=== PATIENT | female | born 1970 | race Caucasian/White ===

== ENCOUNTER → 2017-06-22 14:03 | Outpatient (CLI) | payer BC, SELFPAY | PROVIDERS: PCP Family Medicine; Visit Provider Family Medicine | DX: G47.30 Sleep apnea, unspecified (principal); G47.10 Hypersomnia, unspecified | CPT/HCPCS: 95806 ==

== ENCOUNTER → 2017-07-05 14:04 | Outpatient (CLI) | payer BC, SELFPAY ==
--- NOTE | 2017-07-05 14:05 | US_ITS ---
US transvaginal HISTORY: ITS.REASON: abnormal /heavy bleeding ORDERING PHYSICIAN: Mallory Paige MD PATIENT AGE: 46 years FINDINGS: Uterus measures 7 x 4 x 6 cm with a combined endometrial thickness of 4 mm. The uterus is retroverted. There is a 1.2 x 0.8 cm area of decreased echogenicity in the lateral aspect of the uterine body consistent with a fibroid. Right ovary is 3 x 2.3 cm and contains a 1.2 cm cyst. The left ovary is enlarged measuring 4.2 x 4 cm containing a 3.3 x 3.8 cm cyst. No internal echoes. No septa. No cul-de-sac fluid. IMPRESSION: 1. 3.8 x 3.3 cm benign-appearing left ovarian cyst 2. Small uterine fibroid
== END ==
PROVIDERS: Family Provider Family Medicine; PCP Family Medicine; Visit Provider Obstetrics & Gynecology
DX: N92.1 Excessive and frequent menstruation with irregular cycle (principal); N93.8 Other specified abnormal uterine and vaginal bleeding
CPT/HCPCS: 76830

== ENCOUNTER → 2017-12-13 15:47 | Outpatient (CLI) | payer BC, SELFPAY ==
--- NOTE | 2017-12-13 15:48 | MM_ITS ---
MM Dig screening mamm BI w/CAD ORDERING PHYSICIAN : Mallory Paige MD PATIENT AGE: 47 years GENDER: Female COMPARISON: Previous mammogram digital mammogram August 2016 & film screen study [facility] November 2012 INDICATION: ITS.REASON: Routine Screening Mammogram Patient takes control pills. No new complaints. Noncontributory family history. TECHNIQUE: Standard CC and MLO images were obtained. R2 CAD reviewed. Axillary cc &. CC nipple profile both breast FINDINGS: Moderate density breast bilaterally. Moderate residual fibroglandular elements no suspicious dominant mass nor suspicious calcifications in either breast. Prior films are helpful and supportive stable appearance of the breast. No significant new areas of concern L1 compared to the digital mammogram of 2017. RIGHT BREAST:No significant new phase follow-up in one year recommended. LEFT BREAST:No significant new findings. Follow-up left mammogram 1 year IMPRESSION: Moderate density breast. No significant new findings of concern No malignancy evident radiographically. Bilateral follow-up in one year recommended. BI-RADS Category: 2 Benign Finding(s) RECOMMENDED FOLLOW-UP: 1YR 1 YEAR FOLLOW-UP (A letter has been sent to the patient regarding results of the study.)
== END ==
PROVIDERS: Family Provider Family Medicine; PCP Family Medicine; Visit Provider Obstetrics & Gynecology
DX: Z12.31 Encounter for screening mammogram for malignant neoplasm of breast (principal)
CPT/HCPCS: 77067

== ENCOUNTER → 2018-06-25 15:29 | Outpatient (CLI) | payer BC, SELFPAY ==
[2018-06-25 16:33] LABS: Basophils % 0.3 % (0.1-2.0); Eosinophils # 0.1 K/mm3 (0.0-0.4); Eosinophils % 1.2 % (0.1-12.0); Hematocrit 45.2 % (37.0-47.0); Hemoglobin 14.4 g/dL (12.2-16.2); Lymphocytes # 3.2 K/mm3 (0.7-4.5); Lymphocytes % 40.1 % (10-50); Mean Corpuscular HGB Conc 31.9 g/dL (31.8-35.4); Mean Corpuscular Hemoglobin 27.2 pg (27.0-31.2); Monocytes # 0.4 K/mm3 (0.1-1.0); Monocytes % 5.1 % (1.7-9.3); Neutrophils # 4.2 K/mm3 (1.8-7.8); Neutrophils % 53.3 % (37.0-80.0); Platelet Count 326 K/mm3 (142-424); Red Blood Count 5.32 M/mm3 (4.20-5.40); Red Cell Distribution Width 13.1 % (11.5-17.5); White Blood Count 7.9 K/mm3 (4.8-10.8)
[2018-06-25 17:16] LABS: Blood Urea Nitrogen 17 mg/dL (7-18); Creatinine,Serum 0.98 mg/dL (0.55-1.02); Estimated Glomerular Filt Rate 61 ml/min (>60); GFR (African American) 74 ML/MIN (>60)
== END ==
PROVIDERS: Visit Provider Otolaryngology
DX: R59.9 Enlarged lymph nodes, unspecified (principal); R60.9 Edema, unspecified
CPT/HCPCS: 36415; 82565; 84520; 85025

== ENCOUNTER → 2018-07-09 11:45 | Outpatient (CLI) | payer BC, SELFPAY ==
[2018-07-09 12:32] LABS: Basophils % 0.2 % (0.1-2.0); Eosinophils # 0.1 K/mm3 (0.0-0.4); Eosinophils % 0.5 % (0.1-12.0); Hematocrit 48.7 % (37.0-47.0); Hemoglobin 15.9 g/dL (12.2-16.2); Lymphocytes # 1.4 K/mm3 (0.7-4.5); Lymphocytes % 11.3 % (10-50); Mean Corpuscular HGB Conc 32.6 g/dL (31.8-35.4); Mean Corpuscular Hemoglobin 27.7 pg (27.0-31.2); Mean Corpuscular Volume 84.9 fl (81-99); Mean Platelet Volume 6.9 fl (7.4-10.4); Monocytes # 0.5 K/mm3 (0.1-1.0); Neutrophils # 10.3 K/mm3 (1.8-7.8); Platelet Count 343 K/mm3 (142-424); Red Blood Count 5.74 M/mm3 (4.20-5.40); Red Cell Distribution Width 12.9 % (11.5-17.5); White Blood Count 12.2 K/mm3 (4.8-10.8)
[2018-07-09 13:09] LABS: Alanine Aminotransferase 27 U/L (12-78); Albumin Level 3.4 gm/dL (3.4-5.0); Albumin/Globulin Ratio 0.8 (1.1-1.8); Alkaline Phosphatase 108 U/L (46-116); Amylase 51 U/L (25-115); Anion Gap 15.4 mEq/L (5-15); Aspartate Amino Transferase 8 U/L (15-37); Bilirubin,Total 0.4 mg/dL (0.2-1.0); Blood Urea Nitrogen 17 mg/dL (7-18); Calcium 8.6 mg/dL (8.5-10.1); Carbon Dioxide 25 mmol/L (21.0-32.0); Chloride 102 mmol/L (98-107); Creatinine,Serum 0.66 mg/dL (0.55-1.02); Estimated Glomerular Filt Rate 97 ml/min (>60); GFR (African American) 117 ML/MIN (>60); Globulin 4.1 gm/dl (1.3-3.2); Glucose 172 mg/dL (74-106); Lipase 109 u/L (73-393); Potassium 4.4 mmoL/L (3.5-5.1); Sodium 138 mmol/L (136-145); Total Protein,Serum 7.5 gm/dL (6.4-8.2)
== END ==
PROVIDERS: Visit Provider Family Medicine
DX: R10.13 Epigastric pain (principal); R10.12 Left upper quadrant pain
CPT/HCPCS: 36415; 80053; 82150; 83690; 85025

== ENCOUNTER → 2018-07-10 14:06 | Outpatient (CLI) | payer BC, SELFPAY ==
--- NOTE | 2018-07-10 14:07 | CT_ITS ---
CT soft tissue neck wo/w con INDICATION: ITS.REASON: tender area left neck ORDERING PHYSICIAN: Franki Herron MD PATIENT AGE: 47 years COMPARISON: None TECHNIQUE: Axial images are obtained without and with 75 mL's of Optiray 350 contrast. Sagittal and coronal reformatted images are reviewed as well. All CT scans at the facility use one or more dose reduction, viz: automated exposure control, ma/kV adjustment per patient size (including targeted exams where dose is matched to indication, i.e. head), or iterative reconstruction technique. FINDINGS: A BB is placed along the left neck anterior laterally to renny the area of clinical concern there is no evidence of adenopathy, mass, or abscess. The salivary glands have an unremarkable appearance. No sialoliths. There are few scattered small cervical lymph nodes but no enlarged nodes apparent. No aneurysms. Images of the upper chest are unremarkable. No thyroid nodule. There is mild degenerative disc disease at C5-C6. The sternocleidomastoid muscles are somewhat asymmetric with the left side being larger than the right side. The tendon from the sternocleidomastoid to the sternum is also slightly larger. IMPRESSION: 1. No neck mass or nodules or adenopathy apparent. 2. Mild asymmetry in the sternocleidomastoid muscle the left being slightly larger than the right
== END ==
PROVIDERS: PCP Family Medicine; Visit Provider Otolaryngology
DX: R59.9 Enlarged lymph nodes, unspecified (principal); R60.9 Edema, unspecified
CPT/HCPCS: 70492; Q9967

== ENCOUNTER → 2018-07-20 08:31 | Outpatient (CLI) | payer BC, SELFPAY ==
--- NOTE | 2018-07-20 08:41 | FL_ITS ---
FL upper GI w air HISTORY: ITS.REASON: ABD PAIN ORDERING PHYSICIAN: Abimael Lugo MD PATIENT AGE: 47 years Comparison: None FINDINGS: The esophagus, stomach, and duodenum have an unremarkable appearance. There is no evidence of hiatal hernia. No ulcer or mass evident. No mucosal abnormalities apparent. There is normal peristalsis. The duodenal C-loop is nondisplaced. FLUOROSCOPY TIME : 1 minute and 25 seconds. IMPRESSION: Negative upper GI
== END ==
PROVIDERS: PCP Family Medicine; Visit Provider Family Medicine
DX: R10.13 Epigastric pain (principal)
CPT/HCPCS: 74247

== ENCOUNTER → 2018-08-15 15:40 | Outpatient (CLI) | payer BC, SELFPAY ==
[2018-08-15 17:11] LABS: Blood Urea Nitrogen 11 mg/dL (7-18); Creatinine,Serum 0.88 mg/dL (0.55-1.02); Estimated Glomerular Filt Rate 69 ml/min (>60); GFR (African American) 84 ML/MIN (>60)
== END ==
PROVIDERS: Visit Provider Family Medicine
DX: R10.11 Right upper quadrant pain (principal)
CPT/HCPCS: 36415; 82565; 84520

== ENCOUNTER → 2018-08-17 08:53 | Outpatient (CLI) | payer BC, SELFPAY ==
--- NOTE | 2018-08-17 08:59 | CT_ITS ---
CT abdomen pelvis w con CLINICAL INDICATION: Left upper quadrant pain and pressure ITS.REASON: EPIGASTRIC ABDOMINAL PAIN, NEUTROPHILIC LEUOKOCYTOSIS ORDERING PHYSICIAN: Abimael Lugo MD PATIENT AGE: 47 years COMPARISON: None TECHNIQUE: Axial images obtained with sagittal and coronal reformats. All CT scans at the facility use one or more dose reduction, viz: automated exposure control, ma/kV adjustment per patient size (including targeted exams where dose is matched to indication, i.e. head), or iterative reconstruction technique. PROCEDURE: Oral Contrast: Redicat IV Contrast: 75 mL's Optiray 350. FINDINGS: Lower thorax: No acute finding The liver, spleen, pancreas, and kidneys have an unremarkable appearance. There is a small 5 mm left renal cyst. The adrenal glands are slightly enlarged nonspecific. Postcholecystectomy changes. No intestinal obstruction or free air. No evidence of appendicitis or diverticulitis. There is mild thickening of the jejunum without distention. This may be related to enteritis. No pelvic mass abnormal fluid collection or focal inflammatory changes pelvis. There is some mild thickening of the sigmoid colon which could be due to nondistention. There are mild degenerative changes in the lumbar spine. IMPRESSION: 1. Possible enteritis. 2. Other nonacute findings as above 3. The adrenal glands are slightly enlarged. This is nonspecific. Consider 6 month follow-up without and with contrast with adrenal protocol to confirm stability
== END ==
PROVIDERS: PCP Family Medicine; Visit Provider Family Medicine
DX: R10.11 Right upper quadrant pain (principal); R10.13 Epigastric pain
CPT/HCPCS: 74177; Q9967

== ENCOUNTER → 2018-12-20 15:51 | Outpatient (CLI) | payer BC, SELFPAY ==
--- NOTE | 2018-12-20 15:53 | MM_ITS ---
PROCEDURE: MM DIG SCREENING MAMM BI W/CAD CLINICAL INDICATION: SCREENING There is no personal or family history of breast cancer. 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 R2 CAD reviewed. FINDINGS: Prominent diffuse somewhat heterogenic fibroglandular densities are seen in both breasts and the findings of bilateral and symmetrical. There are few benign-appearing microcalcifications in each breast. There is no suspicious lesion and no suspicious microcalcifications. IMPRESSION: Moderate diffuse breast density with no suspicious lesions seen BI-RAD Category: 2 Benign Finding(s) FOLLOW-UP: 1YR 1 Year Follow-up (A letter has been sent to the patient regarding results of the study.) Dictated by: Dr. Jeffery Go MD 12/21/2018 10:[address] Jeffery Go MD in [place] 12/21/2018 10:07
== END ==
PROVIDERS: PCP Family Medicine; Visit Provider Family Medicine
DX: Z12.31 Encounter for screening mammogram for malignant neoplasm of breast (principal)
CPT/HCPCS: 77067

== ENCOUNTER → 2019-12-29 17:28 | Outpatient (CLI) | payer BC, SELFPAY | PROVIDERS: PCP Family Medicine; Visit Provider Nurse Practitioner | DX: Z03.818 Encounter for observation for suspected exposure to other biological agents ruled out (principal) | CPT/HCPCS: U0003 ==

== ENCOUNTER → 2020-01-02 12:50 | Outpatient (CLI) | payer BC, SELFPAY ==
--- NOTE | 2020-01-02 13:01 | MM_ITS ---
PROCEDURE: MM DIG SCREENING MAMM BI W/CAD Digital Breast Tomosynthesis Included CLINICAL INDICATION: SCREENING There is no personal or family history of breast cancer. COMPARISON: MG [facility] DIG MAMM-SCREEN EDMUNDO W/CAD from 08/22/2016 MG [facility] MM Dig screening mamm BI w/CAD from 12/13/2017 MG MM DIG SCREENING MAMM BI W/CAD from 12/20/2018 TECHNIQUE: Standard CC and MLO images and 3D Tomosynthesis was obtained. R2 CAD reviewed. FINDINGS: Prominent diffuse somewhat heterogenic fibroglandular densities are seen throughout both breast. Peterson images are most helpful in this type of heterogenic breast parenchyma. There are a few benign-appearing microcalcifications in each breast. There is no suspicious lesion in either breast and no suspicious microcalcifications. IMPRESSION: Diffuse heterogenic breast density with no suspicious lesions seen BI-RAD Category: 2 Benign Finding(s) FOLLOW-UP: 1YR 1 Year Follow-up (A letter has been sent to the patient regarding results of the study.) Dictated by: Dr. Jeffery Go MD 01/03/2020 11:51 Dr. Jeffery Go MD in [place] 01/03/2020 11:51
== END ==
PROVIDERS: PCP Family Medicine; Visit Provider Family Medicine
DX: Z12.31 Encounter for screening mammogram for malignant neoplasm of breast (principal)
CPT/HCPCS: 77063; 77067

== ENCOUNTER → 2020-01-23 13:18 | Outpatient (CLI) | payer BC, SELFPAY | PROVIDERS: PCP Family Medicine; Visit Provider Family Medicine | DX: Z03.818 Encounter for observation for suspected exposure to other biological agents ruled out (principal) | CPT/HCPCS: U0003 ==

== ENCOUNTER → 2020-07-30 12:19 | Outpatient (CLI) | payer BC, SELFPAY ==
--- NOTE | 2020-07-30 12:23 | XR_ITS ---
PROCEDURE: XR HIP LT 2-3V W/PELVIS CLINICAL INDICATION: LT HIP PAIN COMPARISON: No exams were available for comparison FINDINGS: No fracture or dislocation. No lytic or blastic change. Minimal osteoarthritic changes are present with minimal spurring of the humeral head and inferior aspect of the acetabulum. AP view of the pelvis shows some calcification in the right inguinal area nonspecific IMPRESSION: Minimal osteoarthritic change of the left hip. Dictated by: Dl Vasquez MD 07/30/2020 13:53 Dl Vasquez MD in [place] 07/30/2020 13:53
== END ==
PROVIDERS: PCP Family Medicine; Visit Provider Family Medicine
DX: M25.552 Pain in left hip (principal)
CPT/HCPCS: 73502

== ENCOUNTER 2020-08-20 13:00 | Outpatient (RCR) | payer BC, SELFPAY | END 2020-09-30 14:01 | disposition home or self-care (01) | LOC: PT.CARL 13:00 | PROVIDERS: PCP Family Medicine; Visit Provider Orthopaedic Surgery | DX: M76.02 Gluteal tendinitis, left hip (principal) | CPT/HCPCS: 97110; 97140; 97163 ==

== ENCOUNTER 2020-08-27 09:01 | Emergency (ER) | payer OTHER, SELFPAY ==
[2020-08-27 09:32] VITALS: BP 157/95; PULSE 104; RESP 18; TEMP 37.1; O2SAT 97; BMI 45.5
--- NOTE | 2020-08-27 09:37 | XR_ITS ---
PROCEDURE: XR FOOT RT MIN 3V CLINICAL INDICATION: pop sensation Pain COMPARISON: No exams were available for comparison FINDINGS: Metatarsus varus. No acute fracture or dislocation. No lytic or blastic change. The joint spaces are well-preserved. No significant degenerative/arthritic changes. No erosive changes evident. Other findings:None. 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
--- NOTE | 2020-08-27 09:50 | HMH.EDUTC ---
[facility] [place] Clinical Impression: Right foot pain, Tendinitis of right foot Disposition: Home, Self-Care Condition on Discharge: Good Additional Instructions: Rest the extremity, apply ice for 15 minutes as tolerated three or four times per day, Elevate the extremity as tolerated while you are resting. Take ibuprofen for pain. I sent in a prescription to your pharmacy. Follow up with Dr. Montano (podiatry). I put in a referral but you need to call her office and schedule an appointment. Follow up with your regular doctor. GO TO THE ER FOR ANY WORSENING SYMPTOMS Prescriptions: Ibuprofen [Ibuprofen 600mg Tablet] 600 mg PO Q6HP PRN #30 tab PRN Reason: Mild Pain Transmission Status: Received by [id number] Referrals: Abimael Lugo MD [Primary Care Provider] - Estefanía Montano DPM [Staff Physician] - Forms: Work/School Release Time of Disposition: 10:00 Medical Decision Making - Medical Records Medical records reviewed: No: I reviewed the patient's medical records. - Jonah Inquiry Pt receiving controlled substance: No Vital Signs: 08/27/20 09:32 08/27/20 10:04 Temperature 98.8 F 98.7 F Temperature Source Oral Pulse Rate 101 H Pulse Rate [Right] 104 H Respiratory Rate 18 16 Blood Pressure 152/91 H Blood Pressure [Right Arm] 157/95 H Blood Pressure Mean [Right Arm] 115 02 Sat by Pulse Oximetry 97 - Radiology Data #1 Image(s): Foot/Toes Image Reviewed: Yes I reviewed the patient's radiology image, Yes I have reviewed radiologist's interpretation Preliminary Findings: No Fracture Seen PROCEDURE: XR FOOT RT MIN 3V CLINICAL INDICATION: pop sensation Pain COMPARISON: No exams were available for comparison FINDINGS: Metatarsus varus. No acute fracture or dislocation. No lytic or blastic change. The joint spaces are well-preserved. No significant degenerative/arthritic changes. No erosive changes evident. Other findings:None. 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 she states its had a numb sensation. HEENT Symptoms (Recalled from RN notes): No Resp Symptoms (Recalled from RN notes): No Skin Symptoms (Recalled from RN notes): No MS Symptoms (Recalled from RN notes): Yes (R foot pain) Functional Status (Recalled from RN notes): na - History of Present Illness Provider Complaint: She states that she stepped down off of a curb yesterday and felt a pop in her rigth foot. Since then she has had pain of the foot with walking. She has also had some altered sensation in the foot. - Related Data Home Medications Medication Instructions Recorded Confirmed metformin 1,000 mg tablet 1,000 mg PO BID 06/28/17 08/27/20 multivitamin,gx-mfan-uxgierpe 1 tab PO ONCE 06/28/17 08/27/20 lisinopril 20 1 tab PO DAILY 04/10/19 08/27/20 mg-hydrochlorothiazide 25 mg tablet pioglitazone 30 mg tablet 30 mg PO DAILY 04/10/19 08/27/20 benznidazole 12.5 mg tablet 25 mg PO tab 05/05/20 08/27/20 dulaglutide 3 mg/0.5 mL 3 mg SQ WEEKLY 05/05/20 08/27/20 subcutaneous pen injector etonogestrel 68 mg subdermal SUBDERMAL 05/05/20 08/27/20 implant Previous Rx's Medication Instructions Recorded Ibuprofen [Ibuprofen 600mg 600 mg PO Q6HP PRN #30 tab 08/27/20 Tablet] Allergies Allergy/AdvReac Type Severity Reaction Status Date / Time No Known Allergies Allergy Verified 08/27/20 15:25 - Worker's Comp Is this a Worker's Comp case?: No [facility] History - Hepatitis A Screen Drug use history?: No High risk sexual behaviors?:
[2020-08-27 10:04] VITALS: BP 152/91; PULSE 101; RESP 16; TEMP 37.1
== END 2020-08-27 10:24 | disposition home or self-care (01) ==
PROVIDERS: Emergency Provider Nurse Practitioner Family; PCP Family Medicine
DX: M77.51 Other enthesopathy of right foot and ankle (principal); M79.671 Pain in right foot; X50.1XXA Overexertion from prolonged static or awkward postures, initial encounter; Y92.69 Other specified industrial and construction area as the place of occurrence of the external cause; Y99.0 Civilian activity done for income or pay
CPT/HCPCS: 73630; 99202; G0463

== ENCOUNTER → 2020-10-08 08:09 | Outpatient (CLI) | payer OTHER, SELFPAY ==
--- NOTE | 2020-10-08 12:46 | MR_ITS ---
PROCEDURE: MR ANKLE RT WO/W CON CLINICAL INDICATION: pain Pain and swelling laterally and dorsally COMPARISON: CR XR FOOT RT MIN 3V from 08/27/2020 TECHNIQUE: Routine multiplanar multi echo sequences are performed without and with gadolinium enhancement. FINDINGS: The tibiofibular ligaments appear intact. The ATFL and PT FL also appears intact. The deltoid ligament also appears intact. The peroneal tendons, posterior tibial tendon, flexor digitorum and flexor hallucis longus tendons appear intact. There is a small amount fluid along the posterior tibialis tendon. The Achilles tendon is intact. No fracture or dislocation. No bone bruise. Unremarkable sinus tarsi. No abnormal fluid collections. No abnormal enhancement. Mild subcutaneous edema is present within the leg. IMPRESSION: Mild tenosynovitis of the posterior tibialis tendon otherwise negative MRI of the right ankle Dictated by: Dl Vasquez MD 10/09/2020 15:10 Dl Vasquez MD in [place] 10/09/2020 15:10
--- NOTE | 2020-10-08 12:46 | MR_ITS ---
PROCEDURE: MR FOOT RT WO/W CON CLINICAL INDICATION: pain COMPARISON: No exams were available for comparison TECHNIQUE: Routine multiplanar multi echo sequences are performed without gadolinium enhancement. FINDINGS: There is metatarsus varus. No bone marrow edema apparent. No fracture or dislocation. No abnormal fluid collections no bony erosive process evident. The anterior extensor tendons are intact. Pes planus noted. Plantar fascia has an unremarkable appearance. There is mild subcutaneous edema the lower leg ankle and foot. IMPRESSION: Pes planus with metatarsus varus. No acute finding. Dictated by: Dl Vasquez MD 10/09/2020 15:15 Dl Vasquez MD in [place] 10/09/2020 15:15
[2020-10-08 12:53] LABS: Blood Urea Nitrogen 17 mg/dl (7-17); Estimated Glomerular Filt Rate 77 ml/min (>60); GFR (African American) 93 ML/MIN (>60)
== END ==
PROVIDERS: Visit Provider Nurse Practitioner
DX: M77.51 Other enthesopathy of right foot and ankle (principal); M25.371 Other instability, right ankle; S93.401A Sprain of unspecified ligament of right ankle, initial encounter; S96.911A Strain of unspecified muscle and tendon at ankle and foot level, right foot, initial encounter
CPT/HCPCS: 36415; 73720; 73723; 82565; 84520; A9576

== ENCOUNTER 2020-11-25 16:24 | Emergency (ER) | payer BC, SELFPAY ==
[2020-11-25 16:37] VITALS: BP 138/87; PULSE 91; RESP 19; TEMP 37; O2SAT 98; BMI 45.8
--- NOTE | 2020-11-25 16:41 | XR_ITS ---
PROCEDURE INFORMATION: Exam: XR Right Shoulder Exam date and time: 11/25/2020 4:41 PM Age: 50 years old Clinical indication: Pain and injury or trauma; Fall; Sprain or strain; Right; Patient HX: PT fell in shower and C/O RT shoulder pain with limited range of motion TECHNIQUE: Imaging protocol: XR Right shoulder. Views: 2 or more views. COMPARISON: CR XR CHEST 2V 05/21/2019 10:18 AM FINDINGS: Bones/joints: No acute fracture or dislocation. Normal bone mineralization. Acromioclavicular joint is normal. Glenohumeral joint is normal. Included ribs are unremarkable. Soft tissues: No soft tissue swelling or radiopaque foreign body. IMPRESSION: No acute findings.
--- NOTE | 2020-11-25 17:18 | HMH.EDUTC ---
[facility] [place] Disposition Clinical Impression: Strain of shoulder, right Qualifiers: Encounter type: initial encounter Qualified Code(s): S46.911A - Strain of unspecified muscle, fascia and tendon at shoulder and upper arm level, right arm, initial encounter Disposition: Home, Self-Care Condition on Discharge: Good Instructions: Muscle Strain, DI for Shoulder Sprain, DI for Shoulder Pain Additional Instructions: *RICE, Rest the extremity, Ice 15-20 minutes 3-4 times daily, Compress- wear the connie wrap as discussed as much as possible to help reduce swelling and pain, Elevate the extremity when at rest *Sling is for support and help control swelling, use it except in the shower. Be sure that is not to tight but not to loose either *Elevate when resting *Ibuprofen every 6-8 hours as needed for pain an inflammation. If need something more can take Tylenol in between doses of Ibuprofen to help Immediately follow up with your family doctor for new or worsening of symptoms, or no noticeable improvement over the next 3-5 days Follow up with Family Doctor if no improvement or any worsening of symptoms for further evaluation and referral to Orthopedics if needed Over the counter Muscle rubs and /or patches like tiger balm may help with muscle soreness and pain Straight to ER if any life threatening symptoms Referrals: Abimael Lugo MD [Primary Care Provider] - As needed Time of Disposition: 17:44 Medical Decision Making - Jonah Inquiry Pt receiving controlled substance: No Jonah was queried for this patient: No Vital Signs: 11/25/20 16:37 11/25/20 17:46 Temperature 98.6 F 98.6 F Temperature Source Oral Pulse Rate 91 H Pulse Rate [Left] 91 H Respiratory Rate 19 19 Blood Pressure 138/87 Blood Pressure [Right Arm] 138/87 Blood Pressure Mean [Right Arm] 104 02 Sat by Pulse Oximetry 98 Orders (Tests/Meds): ORDERS Category Date Time Status XR shoulder RT min 2V Stat Exams 11/25/20 16:41 Taken - Radiology Data #1 Image(s): Shoulder Image Reviewed: Yes I reviewed the patient's radiology image w/the ED provider Preliminary Findings: No Fracture Seen [facility] [place] HPI - General Stated complaint: AO 11/25@1400 fell injured R Shoulder Time Seen by Provider: 11/25/20 17:18 Mode of Arrival: Ambulatory Source of Information: Patient Limitations: No Limitations Description of Symptoms (Recalled from Triage Doc. by RN): pt fell in the shower while trying to install a shower curtain saul. pt injured her R shoulder. HEENT Symptoms (Recalled from RN notes): No Resp Symptoms (Recalled from RN notes): No Skin Symptoms (Recalled from RN notes): No MS Symptoms (Recalled from RN notes): Yes (R shoulder pain) Functional Status (Recalled from RN notes): na - History of Present Illness Provider Complaint: Patient states she was hanging up a shower curtain at home when she slipped and fell and states that her right arm went up against the wall and over her head States that she got her arm down and had burning like pain and feels like she may have torn or pulled something State that now she has pain when she tries to lift her arm Denies any other injury - Related Data Home Medications Medication Instructions Recorded Confirmed metformin 1,000 mg tablet 1,000 mg PO BID 06/28/17 10/15/20 multivitamin,xk-mixd-zzolmbox 1 tab PO ONCE 06/28/17 10/15/20 lisinopril 20 1 tab PO DAILY 04/10/19 10/15/20 mg-hydrochlorothiazide 25 mg tablet pioglitazone 30 mg tablet 30 mg PO DAILY 04/10/19 10/15/20 benznidazole 12.5 mg tablet 25 mg PO tab 05/05/20 10/15/20 etonogestrel 68 mg subdermal SUBDERMAL 05/05/20 10/15/20 implant dulaglutide 4.5 mg/0.5 mL 4.5 mg SQ ml 09/24/20 10/15/20 subcutaneous pen injector Previous Rx's Medication Instructions Recorded ibuprofen 600 mg tablet 600 mg PO Q6HP PRN 30 Days #30 tab 09/17/20 Allergies Allergy/AdvReac Type Severity Reaction Status Date / Time No Known Allergies Allergy Verified
[2020-11-25 17:46] VITALS: BP 138/87; PULSE 91; RESP 19; TEMP 37
== END 2020-11-25 17:49 | disposition home or self-care (01) ==
PROVIDERS: Emergency Provider Nurse Practitioner; PCP Family Medicine
DX: S46.911A Strain of unspecified muscle, fascia and tendon at shoulder and upper arm level, right arm, initial encounter (principal); W18.2XXA Fall in (into) shower or empty bathtub, initial encounter; Y92.012 Bathroom of single-family (private) house as the place of occurrence of the external cause
CPT/HCPCS: 73030; 99202; G0463

== ENCOUNTER 2020-11-26 08:00 | Outpatient (RCR) | payer OTHER, SELFPAY ==
--- NOTE | 2020-10-22 13:06 | HMH.PTOPEV ---
PT Outpatient Evaluation Rehab PT Outpatient Evaluation Start: 10/22/20 08:10 Freq: Status: Active Protocol: Document 10/22/20 12:09 ALBA (Rec: 10/22/20 12:25 [email or web address] [id number]) Electronically Signed By Ramón Hernández, PT 10/22/20 12:09 Outpatient Therapy Subjective History Subjective History Pt. is a 49 year old female who presents to outpatient P.T. clinic w/ c/o subacute and constant RLE ankle/ft. P!, edema, antalgic gait, and muscle weakness of traumatic onset since DOI on 08/26/20. Pt. reports she was playing musical chairs at the end of a work day where she heard a pop w/ immediate swelling. Recent diagnostic imaging positive for pes planus, cysts, metatarsus varus, and posterior tibialis tenosynovitis, but denies a fx . nor tears per pt. report. Pt . denies having injections for current pathology. Pt. reports ambulating in a CAM bt . x 7 wks. post DOI, states being released to an ankle brace last week. Pt. RTMD . Current medications include Naproxen, Lisinopril, Ibuprofen, Multi-vitamin, Vitamin B-12, Metformin, and Trulicity. PMH includes Cholecystectomy, Tubal Ligation, Tonsillectomy, Hypertension, and Type II Diabetes. Pt. denies history of cancer(self), denies pacemaker, denies latex nor medicational allergy. Chief Complaint Pain,Stiff,Swelling,Gives out/ Unstable,Weakness Symptom Type Ache,Dull,Shooting,Other Symptoms Relieved By Rest/Positioning,Ice,Brace/ Support,OTC Meds Symptoms Aggravated By Standing,Physical Activity, Twisting,Walking,Lifting Prior Functional Limitations None Current Functional Limitations Housework,Standing,Squatting, Recreation Activity,Walking, Stairs,Bend
== END 2020-12-24 13:49 | disposition home or self-care (01) ==
LOC: PT.CARL 08:00
PROVIDERS: Visit Provider Nurse Practitioner
DX: S93.401D Sprain of unspecified ligament of right ankle, subsequent encounter (principal); S96.911D Strain of unspecified muscle and tendon at ankle and foot level, right foot, subsequent encounter; M25.371 Other instability, right ankle
CPT/HCPCS: 97010; 97014; 97033; 97035; 97110; 97112; 97140; 97163; G0283

== ENCOUNTER 2021-01-14 17:00 | Outpatient (RCR) | payer BC, SELFPAY | END 2021-02-08 08:10 | disposition home or self-care (01) | LOC: PT.CARL 17:00 | PROVIDERS: PCP Family Medicine; Visit Provider Orthopaedic Surgery | DX: M89.8X1 Other specified disorders of bone, shoulder (principal); M25.311 Other instability, right shoulder | CPT/HCPCS: 97010; 97014; 97110; 97140; 97163; G0283 ==

== ENCOUNTER → 2021-01-22 13:15 | Outpatient (CLI) | payer BC, SELFPAY ==
--- NOTE | 2021-01-22 13:18 | MM_ITS ---
PROCEDURE INFORMATION: Exam: MG Bilateral Screening 3D Mammography Exam date and time: 01/22/2021 1:18 PM Age: 50 years old Clinical indication: Encounter for screening mammogram for malignant neoplasm of breast TECHNIQUE: Imaging protocol: Bilateral screening tomosynthesis and 2D mammography including computer-aided detection (CAD) when performed. COMPARISON: 1. MG MM DIG SCREENING MAMM BI W/CAD 01/02/2020 1:13 PM 2. MG MM DIG SCREENING MAMM BI W/CAD 12/20/2018 4:09 PM 3. MG [facility] MM Dig screening mamm BI w/CAD 12/13/2017 3:55 PM 4. MG [facility] DIG MAMM-SCREEN EDMUNDO W/CAD 08/22/2016 4:07 PM FINDINGS: MAMMOGRAPHY: Breast composition: The breast tissue is heterogeneously dense, which may obscure small masses. Mass: None. Architectural distortion: No new or suspicious architectural distortion. Calcifications: No new or suspicious calcifications are present Asymmetric density: Stable benign-appearing focal asymmetries are present in the bilateral breast. No new or morphologically suspicious asymmetric density has developed to suggest malignancy. Skin thickening: None. Axillary adenopathy: None. IMPRESSION: No mammographic evidence of malignancy. Recommend annual screening mammography unless otherwise clinically indicated. ASSESSMENT: BI-RADS category 2: Benign
== END ==
PROVIDERS: PCP Family Medicine; Visit Provider Family Medicine
DX: Z12.31 Encounter for screening mammogram for malignant neoplasm of breast (principal)
CPT/HCPCS: 77063; 77067

== ENCOUNTER → 2022-01-21 14:24 | Outpatient (CLI) | payer BC, SELFPAY ==
--- NOTE | 2022-01-21 14:24 | MM_ITS ---
PROCEDURE INFORMATION: Exam: MG Bilateral Diagnostic Breast Tomosynthesis Exam date and time: 01/21/2022 2:39 PM Age: 51 years old Clinical indication: Concern for bilateral bloody nipple discharge, worse on the right. No family history of breast cancer. TECHNIQUE: Imaging protocol: Bilateral Diagnostic tomosynthesis and 2D mammography including computer-aided detection (CAD) when performed. Unilateral or bilateral exam. COMPARISON: 1. MG MM DIG SCREENING MAMM BI W/CAD 01/22/2021 1:19 PM 2. MG MM DIG SCREENING MAMM BI W/CAD 01/02/2020 1:13 PM 3. MG MM DIG SCREENING MAMM BI W/CAD 12/20/2018 4:09 PM 4. MG [facility] MM Dig screening mamm BI w/CAD 12/13/2017 3:55 PM FINDINGS: MAMMOGRAPHY: Breast composition: The breasts are heterogeneously dense, which may obscure small masses. Mass: None. Architectural distortion: None. Calcifications: No suspicious calcifications. Asymmetric density: None. Skin thickening: None. Axillary adenopathy: None. Other: Nipples not in profile in any projection, may be inverted, correlate clinically. Stable mildly dilated retroareolar ducts on the right. IMPRESSION: History of bilateral bloody nipple discharge if spontaneous and bloody, advise bilateral sonography and breast MRI and/or surgical consultation as clinically warranted. No mammographic evidence of malignancy. ASSESSMENT: BI-RADS Category 0: Incomplete- Need Additional Imaging Evaluation and/or Prior Mammograms for Comparison
== END ==
LOC: RAD 14:24
PROVIDERS: PCP Family Medicine; Visit Provider Nurse Practitioner Obstetrics & Gynecology
DX: N64.52 Nipple discharge (principal)
CPT/HCPCS: 77062; 77066; G0279

== ENCOUNTER → 2022-02-17 14:00 | Outpatient (CLI) | payer BC, SELFPAY ==
--- NOTE | 2022-02-17 14:01 | US_ITS ---
PROCEDURE INFORMATION: Exam: US Right Breast, Complete US Left Breast, Complete Exam date and time: 02/17/2022 2:50 PM Age: 51 years old Clinical indication: Nipple discharge; Bilateral; Bloody discharge TECHNIQUE: Imaging protocol: Complete ultrasound of all four quadrants of the Right breast and the retroareolar regions, including ultrasound of the axilla when performed. Complete ultrasound of all four quadrants of the Left breast and the retroareolar regions, including ultrasound of the axilla when performed. COMPARISON: MG MM DIG MAMM BI DX W/CAD 01/21/2022 2:39 PM FINDINGS: Breast: Sonographic images of both breasts including the retroareolar regions, all 4 quadrants and the axilla do not demonstrate any cystic masses. In the right 12 o'clock axis 4 cm from the nipple is a subcutaneous hypoechoic ovoid mass measuring 0.5 x 0.3 x 0.6 cm in dimension, likely benign in etiology. Marked retroareolar duct ectasia is noted on the right with internal architecture present. It is unclear if this reflects debris or a true solid lesion within the duct. The area of interest measures approximately 0.8 x 0.4 cm in dimension. No duct ectasia on the left. No architectural distortion or acoustical shadowing. No skin thickening or axillary adenopathy. IMPRESSION: Questionable intraductal mass on the right. Ultrasound-guided core biopsy is recommended for further evaluation. No focal findings on the left. If there is spontaneous hemorrhagic or clear nipple discharge from either breast, MRI may prove useful for further evaluation. Probably benign right 12 o'clock axis incidental mass seen on sonography. A six-month follow-up targeted right breast ultrasound is recommended to ensure stability over time. ASSESSMENT: BI-RADS Category 4: Suspicious
== END ==
PROVIDERS: PCP Family Medicine; Visit Provider Surgery
DX: N64.52 Nipple discharge (principal)
CPT/HCPCS: 76641

== ENCOUNTER → 2022-02-23 06:57 | Outpatient (CLI) | payer BC, SELFPAY ==
--- NOTE | 2022-02-23 06:58 | US_ITS ---
FINAL REPORT CLINICAL HISTORY: Right breast lesion FINDINGS: ULTRASOUND-GUIDED RIGHT BREAST CORE BIOPSY TECHNIQUE: Limited images were obtained to localize region of interest. A tubular subcentimeter lesion was identified in the retroareolar right breast. This was located approximately 6:00. The right breast was prepped in a routine sterile fashion and locally anesthetized with 1% lidocaine. Standard written informed consent was obtained. An 11-gauge vacuum assisted hand-held device was utilized. The needle was positioned posterior to the lesion. Multiple vacuum assisted core samples were obtained. The lesion was noted to be significantly smaller following biopsy. A biopsy marker clip was deployed in satisfactory position. Postbiopsy mammogram showed postbiopsy changes with clip in satisfactory position. Procedure was well tolerated . CONCLUSION: 1. Technically successful ultrasound guided vacuum assisted core biopsy of right breast lesion as above. 2. Biopsy marker clip deployed Recommendation: Histopathology reveals findings of papilloma without evidence of carcinoma. This correlates well with the mammographic and sonographic findings. Short-term 6 month sonographic and mammographic follow-up was recommended is normal post benign biopsy surveillance. Authenticated and ERN
--- NOTE | 2022-02-23 07:19 | MM_ITS ---
FINAL REPORT CLINICAL HISTORY: clip placement right breast, right breast nodule. Recent biopsy. FINDINGS: MAMMOGRAM RIGHT TECHNIQUE: Standard digital 2-D views COMPARISON: 01-21-22 and 01-22-21 DENSITY: There are scattered areas of fibroglandular density FINDINGS: Post biopsy marker clip is noted to be in satisfactory position. The clip is noted at 6:00. The underlying lesion was not readily evident mammographically on pre-or post biopsy exam. Postbiopsy changes are noted. IMPRESSION: Biopsy marker clip in good position RECOMMENDATION: Given histopathology of intraductal papilloma this represents concordant findings. Six-month short-term mammographic and sonographic follow-up is recommended as part of post benign biopsy surveillance. Authenticated and ERN
== END ==
PROVIDERS: PCP Nurse Practitioner Family; Visit Provider Surgery
DX: N63.41 Unspecified lump in right breast, subareolar (principal)
CPT/HCPCS: 19083; 77065; 88305; C2618

== ENCOUNTER 2022-05-21 13:56 | Emergency (ER) | payer BC, SELFPAY ==
[2022-05-21 14:10] VITALS: BP 140/68; PULSE 105; RESP 22; TEMP 36.6; O2SAT 96; BMI 49.4
--- NOTE | 2022-05-21 14:49 | EXP.UTC ---
Discharge Plan Disposition Patient Disposition: Home, Self-Care Condition: Good Prescriptions Prescriptions: New ofloxacin 0.3 % drops See Rx Instructions .ROUTE .COMPLEX Qty: 10 0RF Rx Instructions: put 1-2 drps into chidi eye(s) every 2-4 h x 2 days, then 1-2 drps 4 times/day days 3-7 No Action Nexplanon 68 mg implant SUBDERMAL B-complex with vitamin C Capsule 1 cap PO DAILY metformin 1,000 mg tablet 1,000 mg PO BID multivitamin,we-ayfw-taojifog [Complete Multivitamin] tablet 1 tab PO ONCE lisinopril-hydrochlorothiazide 20-25 mg tablet 1 tab PO DAILY Label Comments: TAKE 1 TABLET BY MOUTH ONCE DAILY FOR 90 DAYS pioglitazone 30 mg tablet 30 mg PO DAILY fluconazole [Diflucan] 150 mg tablet 150 mg PO Q3D Qty: 2 1RF Referrals Follow up/Referrals: Meryl Bacon APRN [Primary Care Provider] - See instructions Activity Restrictions/Add. Instructions Additional Instructions/Restrictions: contact precautions discussed if symptoms worsen or no improvement return Clinical Impressions Clinical Impression: [place] eye disease of both eyes Instructions Patient Instructions: DI for Conjunctivitis Discharge ED Provider: Della ([facility])[place] [facility] [place] General Stated complaint: eyes red and burning Mode of Arrival: Ambulatory Source of Information: Patient Limitations: No Limitations Time Seen by Provider: 05/21/22 14:49 Description of Symptoms (Recalled from Triage Doc. by RN): PATIENT C/O REDNESS AND DRAINAGE TO EYES SINCE YESTERDAY HEENT Symptoms (Recalled from RN notes): Yes Resp Symptoms (Recalled from RN notes): No Skin Symptoms (Recalled from RN notes): No MS Symptoms (Recalled from RN notes): No Functional Status (Recalled from RN notes): WNL History of Present Illness Provider Complaint: 51 yr old female presents for chidi eye redness and drainage since yesterday. pt states eyes were matted together this am Related Data Home Medications Medication Instructions Recorded Confirmed metformin 1,000 mg tablet 1,000 mg PO BID Diabetes 06/28/17 03/10/22 multivitamin,fu-pxxp-tagusmff 1 tab PO ONCE Supplement 06/28/17 03/10/22 (Complete Multivitamin tablet) lisinopril 20 1 tab PO DAILY bp 04/10/19 03/10/22 mg-hydrochlorothiazide 25 mg tablet pioglitazone 30 mg tablet 30 mg PO DAILY Diabetes 04/10/19 03/10/22 etonogestrel 68 mg subdermal subdermal 05/05/20 03/10/22 implant (Nexplanon) B-complex with vitamin C 1 cap PO DAILY 01/17/22 03/10/22 Previous Rx's Medication Instructions Recorded fluconazole 150 mg tablet 150 mg PO Q3D 2 doses #2 tabs 02/01/22 (Diflucan) ofloxacin 0.3 % eye drops See Rx Instructions ophthalmic 05/21/22 (eye) .COMPLEX #10 mL Allergies Allergy/AdvReac Type Severity Reaction Status Date / Time No Known Allergies Allergy Verified 03/10/22 14:26 Worker's Comp Is this a Worker's Comp case?: No [facility] Disclaimer: The information contained in this section may have been updated after the patient was seen, as this information can be updated by other users. 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) Smoking Status: Never smoker alcohol intake: current substance use type: denies use current occupational status: employed Travel in the last 8 weeks: None housing: house caffeine: Yes ROS Obtained: Yes All systems reviewed & no additional complaints except as documented Constitutional Constitutional: Reports system reviewed and no additional complaints, except as documented and Reports as per HPI Eyes Eyes: Reports system reviewed and no additional complaints, except as documented, Reports as per HPI, Reports eye discharge and Reports irritation ENT Ears, Nose, Mouth, and Throat: Reports system reviewed and no additional complaints, except
[2022-05-21 15:02] VITALS: BP 140/68; PULSE 105; RESP 22; TEMP 36.6; O2SAT 96
== END 2022-05-21 15:05 | disposition home or self-care (01) ==
PROVIDERS: Emergency Provider Nurse Practitioner Family; PCP Nurse Practitioner Family
DX: H10.33 Unspecified acute conjunctivitis, bilateral (principal)
CPT/HCPCS: 99212; 99214; G0463

== ENCOUNTER → 2022-07-22 12:46 | Outpatient (CLI) | payer BC, SELFPAY ==
--- NOTE | 2022-07-22 12:46 | MM_ITS ---
PROCEDURE INFORMATION: Exam: US Right Breast, Complete MG Right Diagnostic Breast Tomosynthesis Exam date and time: 07/22/2022 12:56 PM Age: 51 years old Clinical indication: Short-term radiographic followup; Right breast; sonographically visible mass. Sonographic follow-up following a right retroareolar biopsy TECHNIQUE: Imaging protocol: Complete ultrasound of all four quadrants of the right breast and the retroareolar regions, including ultrasound of the axilla when performed. Right Diagnostic tomosynthesis and 2D mammography including computer-aided detection (CAD) when performed. Unilateral or bilateral exam. COMPARISON: 1. MG MM CLIP PLACEMENT RT 02/23/2022 8:35 AM 2. MG MM DIG MAMM BI DX W/CAD 01/21/2022 2:39 PM Sonogram dated 02/17/2022 FINDINGS: MAMMOGRAPHY: The breast is heterogeneously dense, which may obscure small masses. There is no stellate mass, architectural distortion or suspicious microcalcifications to suggest malignancy. No skin thickening or axillary adenopathy. ULTRASOUND: Sonographic images of the right 4 o'clock axis 12 cm from the nipple demonstrates significant interval enlargement of a previously noted hypoechoic mass previously measuring 0.5 x 0.3 x 0.6 cm and currently measuring 0.7 x 0.3 x 0.8 cm. It is slightly heterogeneous in echotexture and fairly well-circumscribed. No other solid or cystic masses in the right breast. No focal masses in the retroareolar region the site of prior biopsy. Moderate retroareolar duct ectasia with internal debris is noted. No discrete intraductal mass is noted. No architectural distortion or acoustical shadowing. No skin thickening or axillary adenopathy. IMPRESSION: Significant interval enlargement of a hypoechoic mass in the right 4 o'clock axis mass. It should be noted there is a typographical error in the prior report dated 02/17/2022, in that, the masses located in the 4 o'clock axis 12 cm from the nipple.. Ultrasound-guided core biopsy is recommended for further evaluation ASSESSMENT: BI-RADS Category 4: Suspicious
== END ==
PROVIDERS: PCP Nurse Practitioner Family; Visit Provider Surgery
DX: R92.8 Other abnormal and inconclusive findings on diagnostic imaging of breast (principal); N64.52 Nipple discharge
CPT/HCPCS: 76641; 77061; 77065; G0279

== ENCOUNTER → 2022-08-29 10:22 | Outpatient (CLI) | payer BC, SELFPAY ==
--- NOTE | 2022-08-29 10:22 | US_ITS ---
FINAL REPORT CLINICAL HISTORY: rt breast mass - biopsy FINDINGS: ULTRASOUND-GUIDED RIGHT BREAST CORE BIOPSY TECHNIQUE: Limited images were obtained to localize region of interest. The right breast was prepped in a routine sterile fashion and locally anesthetized with 1% lidocaine. Standard written informed consent was obtained. The biopsy needle was positioned within the outer periphery of the lesion. A total of 4 passes were made with a 16 gauge core biopsy needle. A biopsy marker clip was deployed in satisfactory position. Postbiopsy mammogram showed postbiopsy changes with clip in satisfactory position. The sonographic lesion was not evident mammographically. Procedure was well tolerated . CONCLUSION: 1. Technically successful ultrasound guided core biopsy of right breast lesion as above. 2. Biopsy marker clip deployed Histopathology results reveal benign findings. Pathology is concordant with mammographic findings. Recommend 6 month ultrasound follow-up as routine benign postbiopsy surveillance. Authenticated and ERN
--- NOTE | 2022-08-29 11:46 | MM_ITS ---
FINAL REPORT CLINICAL HISTORY: clip placement FINDINGS: MAMMOGRAM RIGHT TECHNIQUE: Standard digital 2-D views COMPARISON: 07-22-22 DENSITY: There are scattered areas of fibroglandular density FINDINGS: Post biopsy marker clip is noted to be in satisfactory position. Postbiopsy changes are noted. The newly placed biopsy marker clip is seen in the periphery of the right breast at 4:00. IMPRESSION: Biopsy marker clip in good position RECOMMENDATION: Histopathology revealed benign findings concordant with the sonographic abnormality. Short-term sonographic and mammographic follow-up is recommended in 6 months as part of benign biopsy follow-up Authenticated and ERN
== END ==
PROVIDERS: PCP Nurse Practitioner Family; Visit Provider Surgery
DX: N63.10 Unspecified lump in the right breast, unspecified quadrant (principal)
CPT/HCPCS: 19083; 77065

== ENCOUNTER → 2023-02-14 13:31 | Outpatient (CLI) | payer BC, SELFPAY ==
--- NOTE | 2023-02-14 13:32 | US_ITS ---
PROCEDURE: US TRANSVAGINAL CLINICAL INDICATION: abnormal uterine and vaginal bleeding COMPARISON: No exams were available for comparison FINDINGS: Transvaginal sonographic images of the pelvis were obtained. UTERUS: 6.5cm x 4.0cmx 3.6cm retroverted and retroflexed with a combined endometrial thickness of 2.1mm. There is a small nabothian cyst in the cervix. LEFT OVARY: 4.7cmx4.6cmx3.6cm with a volume of 41.4ml. There is a multi cystic area within the left ovary. The largest follicle measures 3.2 cm x 2.0 cm x 2.9 cm. A 2nd follicular area adjacent to the 1st follicle measures 1.3 cm x 1.9 cm x 0.9 cm. There is the suggestion of a small hemorrhagic area in the left ovary. RIGHT OVARY: 2.2cmx 2.2cmx1.4cm with a volume of 3.5ml. There is a small calcified area within the right ovary that has some posterior shadowing. Both ovaries are seen and appear normal. Doppler flow to both ovaries are seen. There is no fluid in the cul-de-sac. IMPRESSION: 1. Retroverted, retroflexed uterus. The endometrium is thin. 2. The left ovary is enlarged and there is a multi cystic area in the left ovary. There is a small area that could be hemorrhagic. The largest follicle measures 3.2 cm. 3. The right ovary appears normal with a small calcified area with posterior shadowing of questionable significance. 4. No fluid in the cul-de-sac. Dictated by: Khurram Bond MD 02/15/2023 10:36 Khurram Bond MD in [place] 02/15/2023 10:36
== END ==
PROVIDERS: PCP Nurse Practitioner Family; Visit Provider Obstetrics & Gynecology
DX: N93.9 Abnormal uterine and vaginal bleeding, unspecified (principal)
CPT/HCPCS: 76830

== ENCOUNTER 2023-03-27 14:12 | Outpatient (CLI) | payer BC, SELFPAY ==
--- NOTE | 2023-03-27 14:13 | US_ITS ---
PROCEDURE INFORMATION: Exam: US Right Breast, Complete MG Bilateral Diagnostic Breast Tomosynthesis Exam date and time: 03/27/2023 3:06 PM Age: 52 years old Clinical indication: Short-term radiographic followup; Right breast; benign biopsy TECHNIQUE: Imaging protocol: Complete ultrasound of all four quadrants of the right breast and the retroareolar regions, including ultrasound of the axilla when performed. Bilateral Diagnostic tomosynthesis and 2D mammography including computer-aided detection (CAD) when performed. Unilateral or bilateral exam. COMPARISON: US BIOPSY BREAST RT 08/29/2022 11:16 AM FINDINGS: MAMMOGRAPHY: The breasts are heterogeneously dense, which may obscure small masses. There is no stellate mass, architectural distortion or suspicious microcalcifications in either breast to suggest malignancy. No skin thickening or axillary adenopathy. ULTRASOUND: Sonographic images of the right breast including the retroareolar region, all 4 quadrants and the axilla do not demonstrate any suspicious solid or cystic masses. Previously biopsied benign mass in the right 4 o'clock axis 12 cm from the nipple is stable measuring 0.6 x 0.6 x 0.2 cm. No architectural distortion or acoustical shadowing. No skin thickening or axillary adenopathy. IMPRESSION: No mammographic or sonographic evidence of malignancy. Annual bilateral mammographic screening is recommended unless otherwise clinically indicated. ASSESSMENT: BI-RADS Category 2: Benign
== END 2023-03-27 23:59 ==
PROVIDERS: PCP Nurse Practitioner Family; Visit Provider Surgery
DX: R92.8 Other abnormal and inconclusive findings on diagnostic imaging of breast (principal)
CPT/HCPCS: 76641; 77062; 77066; G0279

== ENCOUNTER 2023-04-24 09:42 | Outpatient (CLI) | payer BC, SELFPAY ==
--- NOTE | 2023-04-24 09:43 | US_ITS ---
PROCEDURE: US TRANSVAGINAL CLINICAL INDICATION: 8 week follow up COMPARISON: US US TRANSVAGINAL from 02/14/2023 FINDINGS: Transvaginal sonographic images of the pelvis were obtained. UTERUS: 6.2cm x 4.7 cmx 3.7 cm retroverted and retroflexed with a combined endometrial thickness of 2mm. There are multiple small nabothian cysts in the cervix. The largest measures 7.3 mm. There are several small hyperechoic areas along the junction between the cervix and uterus. LEFT OVARY: 5.0cmx5.2cmx4.9cm with a volume of 66.1ml. The left ovary is enlarged with a least 3 follicles that appear as one multi cystic area. The 3 follicles together measure 4.5 cm x 4.5 cm x 4.9 cm. They are thin walled. No excrescences. No palpable lesions. RIGHT OVARY: 4.3cmx 3.6 cmx2.4cm with a volume of 19.5ml. A single follicle measuring 3.6 cm x 3.3 cm x 2.2 cm is seen in the right ovary. There are some small hyperechoic areas in the stroma of the right ovary. Both ovaries are seen and appear normal. Doppler flow to both ovaries are seen. There is no fluid in the cul-de-sac. IMPRESSION: 1. Retroverted, retroflexed uterus normal in shape and size. The endometrium is thin at 2 mm. 2. The left ovary has 3 follicles that measure 4.9 cm together. The follicles are thin walled. 3. The right ovary has a single follicle measuring 3.6 x 3.3 cm. 4. No fluid in the cul-de-sac. 5. Suggest repeat scan in 3 months. Dictated by: Khurram Bodn MD 04/24/2023 15:02 Khurram Bond MD in [place] 04/24/2023 15:02
== END 2023-04-24 23:59 ==
LOC: RAD 09:43
PROVIDERS: PCP Nurse Practitioner Family; Visit Provider Obstetrics & Gynecology
DX: N93.9 Abnormal uterine and vaginal bleeding, unspecified (principal)
CPT/HCPCS: 76830

== ENCOUNTER 2023-07-17 13:56 | Outpatient (CLI) | payer BC, SELFPAY ==
--- NOTE | 2023-07-17 14:02 | US_ITS ---
PROCEDURE: US TRANSVAGINAL CLINICAL INDICATION: follow up on Ovarian Cysts COMPARISON: US US TRANSVAGINAL from 02/14/2023 US US TRANSVAGINAL from 04/24/2023 FINDINGS: Transvaginal sonographic images of the pelvis were obtained. UTERUS: 6.9 cm x 4.9x 4.6 cm retroverted with a combined endometrial thickness of 5.2mm. There are 2 small nabothian cysts in the cervix measuring 0.6 cm and 0.5 cm There continue to be a few echogenic foci within the uterus. LEFT OVARY: 5.0cmx4.0cmx4.5cm with a volume of 46.5ml. There is a septated follicle in the left ovary. The largest follicle measures 3.0 cm x 2.7 cm x 3.6 cm. There are small hyperechoic areas within the left ovary. RIGHT OVARY: 2.8 cmx 1.6 cmx2.1cm with a volume of 5ml. The previously described 3.6 cm follicle in the right ovary has resolved. There are small hyperechoic areas within the right ovary. Possible endometriosis. Both ovaries are seen and appear normal. Doppler flow to both ovaries are seen. There is no fluid in the cul-de-sac. IMPRESSION: 1. Retroverted uterus normal in shape and size. There are number of small echogenic foci within the uterus. The endometrium is thin. 2. Left ovary has a septated follicle. The largest measures 3.6 cm. 3. The right ovary is seen and appears normal with possible endometriosis. The previously described 3.6 cm follicle has resolved. 4. No fluid in the cul-de-sac. Dictated by: Khurram Bond MD 07/17/2023 17:08 Khurram Bond MD in [place] 07/17/2023 17:08
== END 2023-07-17 23:59 | disposition home or self-care (01) ==
LOC: RAD 13:59
PROVIDERS: Visit Provider Obstetrics & Gynecology
DX: N83.201 Unspecified ovarian cyst, right side (principal); N83.202 Unspecified ovarian cyst, left side
CPT/HCPCS: 76830

== ENCOUNTER 2023-12-31 20:55 | Emergency (ER) | payer BC, SELFPAY ==
[2023-12-31 20:57] VITALS: BP 137/75; PULSE 97; RESP 20; TEMP 36.9; O2SAT 98; BMI 45.3
--- NOTE | 2023-12-31 21:30 | ECG_ITS ---
APPROVED REPORT Exam: Resting ECG HR:111 bpm ECG Measurements Heart Rate [address] 126 P 50 QRSd 91 QRS 66 QT 335 T 18 QTc 400 Conclusion SINUS TACHYCARDIA ABNORMAL RHYTHM ECG UNCONFIRMED REPORT Electronically signed by : DESTIN HILL, 01/01/2024 06:38:16
[2023-12-31 21:31] VITALS: BP 102/57; PULSE 109; O2SAT 95
[2023-12-31] MEDS: ACETAMINOPHEN 500MG TAB 1000 MG PO (21:33)
[2023-12-31] MEDS: hydrOXYzine pamoate 25MG CAPSULE 50 MG PO (21:34)
[2023-12-31] MEDS: IBUPROFEN 600 MG TABLET PO (21:34)
--- NOTE | 2023-12-31 21:59 | HMH.EDGENADL ---
Discharge Plan Disposition Patient Disposition: Home, Self-Care Condition: Good Prescriptions Prescriptions: New hydroxyzine HCl 25 mg tablet 25 mg PO Q6H PRN (Reason: anxiety) Qty: 30 0RF No Action B-complex with vitamin C Capsule 1 cap PO DAILY Januvia 100 mg tablet 100 mg PO medroxyprogesterone 150 mg/mL suspension 150 mg IM [id number] Qty: 1 3RF metformin 1,000 mg tablet 1,000 mg PO BID multivitamin,[id number] [Complete Multivitamin] tablet 1 tab PO ONCE lisinopril-hydrochlorothiazide 20-25 mg tablet 1 tab PO DAILY Patient Comments: TAKE 1 TABLET BY MOUTH ONCE DAILY FOR 90 DAYS simvastatin 10 mg tablet 10 mg PO DAILY glipizide 10 mg tablet 20 mg PO BID Patient Comments: TAKE ONE TABLET BY MOUTH TWICE DAILY Referrals Follow up/Referrals: Provider,Referral, MD [Primary Care Provider] - See instructions Activity Restrictions/Add. Instructions Additional Instructions/Restrictions: You were seen for panic and anxiety. Please follow up with your PCP or mental health provider as soon as possible. Return to the ED if you have any worsening of symptoms. Clinical Impressions Clinical Impression: Panic Instructions Patient Instructions: Anxiety Disorders Print Language Print Language: Faroese Discharge ED Provider: Nima العلي General Adult HPI General Chief complaint: Anxiety Stated complaint: Panic Attack Time Seen by Provider: 12/31/23 21:12 Mode of Arrival: Family Vehicle Source of Information: Patient Limitations: No Limitations Description of Symptoms (Recalled from ER Triage Doc. by RN): Pt c/o panic attack that began at 1830 tonight. 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 She has a hx of anxiety. History of Present Illness HPI narrative: Please note that above description of symptoms, in this electronic medical record under categorization of recalled from ER triage doctor by RN are reflective of an initial nursing assessment, however, is not reflective of my full history and physical exam that was personally taken and clarified. Consequentially, this preceding description of symptoms, which may include the patient's categorized chief complaint in the EMR, do not reflect my personal clinical impression, and the ultimate description of history of present illness and patient stated complaints should be deferred to this section of the note. Unless stated otherwise or congruent with this section of the note, additional signs, symptoms, or incongruence should be interpreted as inaccurate with my clinical impression. Related Data Home Medications ?Medication ?Instructions ?Recorded ?Confirmed metformin 1,000 mg tablet 1,000 mg PO BID Diabetes 06/28/17 11/09/23 multivitamin,[id number] 1 tab PO ONCE Supplement 06/28/17 11/09/23 (Complete Multivitamin tablet) lisinopril 20 1 tab PO DAILY bp 04/10/19 11/09/23 mg-hydrochlorothiazide 25 mg tablet B-complex with vitamin C 1 cap PO DAILY 01/17/22 11/09/23 simvastatin 10 mg tablet 10 mg PO DAILY 02/06/23 11/09/23 sitagliptin phosphate 100 mg 100 mg PO 04/04/23 11/09/23 tablet (Januvia) glipizide 10 mg tablet 20 mg PO BID 08/14/23 11/09/23 Previous Rx's ?Medication ?Instructions ?Recorded medroxyprogesterone 150 mg/mL 150 mg IM [id number] #1 mL 05/03/23 intramuscular suspension hydroxyzine HCl 25 mg tablet 25 mg PO Q6H PRN anxiety #30 tabs 12/31/23 Allergies Allergy/AdvReac Type Severity Reaction Status Date / Time No Known Allergies Allergy Verified 11/09/23 14:16 [facility] Disclaimer: The information contained in this section may have been updated after the patient was seen, as this information can be updated by other users. Medical History LLQ pain Abnormal uterine bleeding Hypertension Diabetes Osteoarthritis 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 History of tubal ligation History of tonsillectomy History of cholecystectomy History of right breast biopsy Family History Mother Heart attack Other Cancer Diabetes Hypertension Social History Smoking Status: Current every day smoker alcohol intake: current alcohol intake frequency: holidays/special occasions only substance use type: denies use current occupational status: employed Travel in the last 8 weeks: None housing: house caffeine: Yes Other Medical History Have you received the Flu Vaccine for this season: No Have you received the Pneumonia Vaccine: No ROS Obtained: Yes All systems reviewed & no additional complaints except as documented Physical Exam General General appearance: alert Head Head exam: atraumatic and normocephalic Eye Eye exam: Present normal appearance, PERRL and EOMI Neck Neck exam: Present normal inspection, full ROM and trachea midline Respiratory Respiratory exam: Absent respiratory distress, wheezes, stridor, accessory muscle use or prolonged expiratory phase Cardiovascular Cardiovascular exam: Present other (Pulses equal symmetric in upper and lower extremities) Abdominal Exam Abdominal exam: Present soft; Absent distention, tenderness or pulsatile mass Extremities Exam Extremities exam: Absent edema Neurological Exam Neurological exam: Present alert, oriented X3 and CN II-XII intact; Absent motor sensory deficit Skin Skin exam: Present warm and dry; Absent diaphoresis or erythema Medical Decision Making Medical Records Medical records reviewed: Yes I reviewed the patient's medical records. Screening: Per USPSTF and CDC recommendations, given the prevalence of disease in our region, it is our hospital?s policy to screen for HIV and viral Hepatitis for all patients aged 18 and over and those with ongoing risk factors. Jonah Inquiry Pt receiving controlled substance: No Jonah was queried for this patient: No Vital Signs: 12/31/23 20:57 12/31/23 21:31 12/31/23 22:01 Temperature 98.5 F Temperature Source Oral Pulse Rate 109 H 97 H Pulse Rate [Right] 97 H Respiratory Rate 20 Blood Pressure 102/57 L 99/51 L Blood Pressure [Right Arm] 137/75 Blood Pressure Mean [Right Arm] 95 Blood Pressure Source [Right Arm] Automatic Cuff 02 Sat by Pulse Oximetry 98 95 96 Oxygen Delivery Method Room Air 12/31/23 22:24 Temperature 98.2 F Temperature Source Pulse Rate 101 H Pulse Rate [Right] Respiratory Rate 18 Blood Pressure 99/51 L Blood Pressure [Right Arm] Blood Pressure Mean [Right Arm] Blood Pressure Source [Right Arm] 02 Sat by Pulse Oximetry Oxygen Delivery Method Orders (Tests/Meds): ED MEDICATIONS Discontinued Medications Generic Name Dose Route Start Last Admin Trade Name Freq PRN Reason Stop Dose Admin Acetaminophen 1,000 mg 12/31/23 21:30 12/31/23 21:33 Acetaminophen 500mg Tab PO 12/31/23 21:31 1,000 mg ONCE ONE Administration Hydroxyzine Pamoate 50 mg 12/31/23 21:18 12/31/23 21:34 Hydroxyzine Pamoate 25mg Capsule PO 12/31/23 21:19 50 mg ONCE ONE Administration Ibuprofen 600 mg 12/31/23 21:30 12/31/23 21:34 Ibuprofen 600 Mg Tablet PO 12/31/23 21:31 600 mg ONCE ONE Administration Medical Decision Narrative: 53-year-old female history of hypertension, hyperlipidemia, diabetes, anxiety and panic attacks presenting with panic attack. Patient states that she has had 2 panic attacks in the past month over social and interpersonal stressors. She states that she has a passed problem, at her living site and has been stressed over that. States that she is also having interpersonal family stressors. Just for arrival, felt that she was shaky, unwell, lightheadedness and had tingling in her face. Was able to breathe and calm her nerves. Shortly afterward patient states that she developed a headache. Currently has mild headache that does not radiate. No vision changes, neurologic deficits, or chest pain, nausea or vomiting, diaphoresis, or any other concerns. Requesting to have her sugar checked. History was obtained via conversation with patient. On arrival, patient hemodynamically stable, alert, oriented x4, appropriate, GCS 15, moving all extremities spontaneously, pupils equal and reactive to light. Full physical exam performed and significant for very anxious appearing female who is in no acute distress. Intermittently tearful. Normotensive, nontachycardic, saturating appropriately on room air. Neurologically intact, ambulatory, speaking full sentences and appropriate. Cardiopulmonary exam within normal limits without murmurs gallops or rubs. No lower extremity edema. Differential includes anxiety, panic, less likely to be ACS, VT, pneumothorax, pneumonia, among others given quick duration and resolution of symptoms. Patient placed on continuous cardiac monitoring and continuous pulse ox with initial blood pressure 137/75, heart rate 97, saturation 98% on room air. Independent interpretation of EKG shows sinus tachycardia [address] or T wave changes concerning for acute ischemia. CA 126, QRS 91, QTc 400. Patient was given hydroxyzine, Tylenol and Motrin for symptomatic management and correction of underlying abnormalities. Workup independently interpreted and significant for fingerstick blood glucose greater than 160. Labs and imaging were considered, but not deemed necessary. Conservative management with meds and hydroxyzine were tried first. On reevaluation, patient states that she is feeling much better, ready to go home. Given patient presentation, workup, history, this most likely represents acute panic attack in the setting of numerous social stressors. Because patient at baseline without signs or symptoms of clinical decompensation, deemed appropriate for discharge. Results were relayed to patient who voiced understanding and were agreeable to outpatient management and follow up. I discussed my clinical impression with patient and answered all questions. At this time, the evidence for any other entities in the differential is insufficient to warrant any further testing or ED observation. This was explained as well. Advisory was given that persistent or worsening symptoms require further evaluation. I confirmed the understanding of this discussion. 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 Electronic box coverer hand of the spoken language may permit errors. Although I have reviewed the note, some errors may still exist. Critical Care Critical Care Time Critical Care Time: No
[2023-12-31 22:01] VITALS: BP 99/51; PULSE 97; O2SAT 96
[2023-12-31 22:24] VITALS: BP 99/51; PULSE 101; RESP 18; TEMP 36.8; O2SAT 96
== END 2023-12-31 22:25 | disposition home or self-care (01) ==
PROVIDERS: Emergency Provider Emergency Medicine
DX: F41.9 Anxiety disorder, unspecified (principal); R51.9 Headache, unspecified
CPT/HCPCS: 93005; 99282

== ENCOUNTER 2024-06-25 13:32 | Outpatient (CLI) | payer OTHER, SELFPAY ==
--- OUTSIDE RECORDS SUMMARY | 2024-06-25 13:35 | XMS_ITS | Data Portability ---
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 Plan of Treatment Reminders Order Date Submit Date Provider Last Modified By Organization Details Last Modified Time Details Appointments None recorded. Lab None recorded. Referral None recorded. Procedures None recorded. Surgeries None recorded. Imaging XR, shoulder, 2 or more view - Room 5 2020 021 [facility] [address] , [place], [address], 14:40:35 Medication Orders cyclobenza lucila 10 mg tablet 2020 021 [facility], [address], [address], 14:43:54 Patient TargetsNo targets recorded. Patient InstructionsNo instructions recorded. Reason for Referral None Reported. Results Created Date Observation Date Name Description Value Unit Range Abnormal Flag Note LastModifiedBy Organization Detail LastModifiedTime 08/06/19 21 08/05/2020 XR, hip, unila teral , 2 or 3 view [facility] [address] [place] [address] Tristin douglass Name: BRIAN Bucio Batshevamike douglass : [birth year] Patimike t Orderi ng Provid er: PERRY MULLIGAN AM EXAM DATE: 06/02/ 2021 EXAM: XR LT HIP UNILAT ERAL, 2 OR 3 VWS COMPAR NOEL: None. HISTOR Y: Hip pain FINDIN GS: Mild degene rative spurri ng of both hips. No eviden ce of fractu re or disloc ation. There is no intrao sseous lesion . IMPRES LUIS ENRIQUE: Mild bilate ral hip DJD, symmet melvin Interp reted By: Jc Hemphill MD [facility] onical ly Signed By: Jc Hemphill MD on 08/06/19 11:26 AM [facility] [place] [address] , [place], [address], 08/24/2020 14:13:25 12/08/[birth year]12/07/2020 XR, shoul babak, 2 or more [facility] [address] [place] [address] Patimike douglass Name: BRIAN douglass : [birth year] Patimike douglass Orderi ng Provid er: PERRY MULLIGAN AM EXAM DATE: 2020 EXAM: XR RT SHOULD ER COMPLE TE RADIOG RAPHIC VIEWS: 3 COMPAR NOEL: None. HISTOR Y: Right should er pain. FINDIN GS: The bones of the should er are normal in alignm ent. No defini te acute fractu re is identi fied. There is a possib le old fractu re of the clavic ular shaft. There is mild degene rative change s at the acromi oclavi cular joint and along the glenoh umeral joint. The acromi oclavi cular and coraco clavic ular spacin g is normal . The visual ized right ribs and right lung appear s normal . IMPRES LUIS ENRIQUE: 1. There are mild degene rative change s in the right should er. 2. There is irregu lar contou r of the clavic le, but this may repres ent an old fractu re. Interp reted By: Mirian boggs MD [facility] onical ly Signed By: Mirian boggs MD on 021 2:35 PM [facility] [place] [address] , [place], [address], 12/08/2020 13:25:25 Result Notes None recorded. Procedures 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 Date Name Laterality Status Provider Name and Address Organization Details Recorded Time procedure on gallbladder completed [facility] 08/05/2020 11:01:35 tonsillectomy completed [facility] 08/05/2020 11:01:40 ligation of bilateral fallopian tubes completed [facility] 08/05/2020 11:01:48 Imaging Results Imaging Date Name Status LastModified by Organiz ation Details LastModified Time 08/05/2020 XR, hip, unilateral , 2 or 3 view completed [facility] [place] [address] , [place], [address], 08/24/2020 14:13:25 12/07/2020 XR, shoulder, 2 or more view completed [facility] [place] [address] , [place], [address], 12/08/2020 13:25:25 Procedure Notes None recorded. Medical Equipment None Reported. Allergies No known drug allergies Medications Name Sig Start Date Stop Date Status Note LastModified by Organization Details LastModified Time cyclobenzapr ine 10 mg tablet Take 1 tablet 3 times a day by oral route as needed. 2020 active Not Available Not Available Not Avai lable metformin 1,000 mg tablet Take 1 tablet twice a day by oral route. active Not Available Not Available No t Available lisinopril 20 mg-hydrochlo rothiazide 25 mg tablet Take 1 tablet every day by oral route. active Not Available Not Available No t Available pioglitazone 30 mg tablet Take 1 tablet every day by oral route. active Not Available Not Available No t Available naproxen 500 mg tablet Take 1 tablet twice a day by oral route. active Not Available Not Available No t Available Nexplanon 68 mg subdermal implant Inject by subcutaneou s route. active Not Available Not Available No t Available Trulicity 4.5 mg/0.5 mL subcutaneous pen injector Inject by subcutaneou s route. active Not Available Not Available No t Available Vitals Date Recorded Body height Body mass index (BMI) Body weight Provider Name and Address Organization Details Last Updated DateTime 08/05/2020 160.02 cm 45.9 kg/m2 169626.42 g [facility] 08/05/2020 10:58:24 Date Recorded Body height Body mass index (BMI) Body weight Provider Name and Address Organization Details Last Updated DateTime 12/07/2020 160.02 cm 45.9 kg/m2 210763.42 g [facility] 12/07/2020 13:40:24 Social History None recorded. Functional Status None recorded. Mental Status None recorded. Family History Relationship Description Onset Age of this Age Resolved Age Notes LastModified by Organization Details LastModified Time Father Diabetes mellitus tchiang Not available 2020 11:00:39 Mother Diabetes mellitus tchiang Not available 2020 11:00:39 Mother Heart disease tchiang Not available 2020 11:00:50 Mother Hypertensive disorder tchiang Not available 2020 11:00:55 Notes:COPD- mother Medical History Condition Response Kidney Stones N COPD N Blood Clot N Cancer N Kidney Disease N Heart Conditions N Blood Thinners N High Cholesterol N Liver Disease N Heart Attack (PR) N Diabetes Y Sleep Apnea Y Hypertension Y Gynecological HistoryNo gynecological history recorded. Obstetrics History GPAL:G 0 P 0 0 0 0 Past Encounters Encounter ID Performer Location Encounter Start Date Encounter Closed Date Diagnosis/Indication Diagnosis SNOMED-CT Code Diagnosis ICD10 Code Diagnosis Note [id number] REBEKAH TOUSSAINT MD [facility] [place] [address] [address] 08/05/2020 10:32:53 08/06/2020 10:14:06 Tendinitis of left gluteal tendon [id number] 44361 M76.02 Assessment :Left gluteal dysfunctio n in trochanter ic bursitis Plan: Recommend physical therapy or on core strengthen ing and posterior kinetic chain strengthen ing. This is a muscular issue and needs to improve function and strengthen ing. Okay for anti-infla mmatories as needed. Follow-up as needed. [id number] REBEKAH TOUSSAINT MD [facility] [place] [address] [place] [address] 12/07/2020 13:30:10 12/07/2020 14:24:15 Shoulder pain 25224692 M25.511 Scapulalgia [id number] M25 .511 Assessment : Acute scapular pain after falling with her arm overhead. Very tight upper trapezius and dyskinesis on exam. X-rays of the shoulder are normal. Plan: I recommend physical therapy to work on scapular stabilizat ion and loosening up the upper trapezius. A muscle relaxer, cyclobenza lucila, has been prescribed to help relax the muscles. Avoid heavy lifting away from body at this time. Shoulder sling as needed, wean from it in the next week or 2. Follow-up as needed. Health Concerns Section Related Observation LastModified by Organization Detai ls LastModified Time None Recorded Concern Status LastModified by Organization Details LastModified Time None Recorded Advance Directives Directive None Recorded Payers Encounter Date Sequence Insurance Name Policy Number Policy Brooks Covered Member ID Brooks Member ID Guarantor Name 08/05/2020 1 [place] [employer] [place] [id number] 2 Angi Dowell [employer] [id number] Angi Hook 12/07/2020 1 [place] [employer] [place] [id number] 2 Angi Hook [id number] Angi Hook Notes Date Note Type Note Provider Name and Address Organization Details Recorded Time 08/05/2020 text/html 08-05-20 SEEN FOR CONSULTATION AT THE REQUEST OF:Self WHAT: {{Right Left* Bi lateral}} {{Knee Ankle Hip * Thigh Lower Leg Shoulder Elb ow Wrist/Hand}}. WHEN:1 month HOW:Patient fell SYMPTOMS:Patient reports of left posterior and lateral hip pain. Pain is worse with prolonged standing. Sleeping on that side causes discomfort. No popping or clicking. No instability. Some pain radiating down the left thigh to the knee. No numbness or tingling. Some occasional low back pain. PAIN: {{0 1 2 3 4 5* 6 7 8 9 10}} /10 PT:No NSAIDS:Yes INJECTION:No REBEKAH TOUSSAINT MD [address] [place], [address], [facility] 08/05/2020 11:32:25 12/07/2020 text/html 12-07-20 PCP: Frank Wise MD SEEN FOR CONSULTATION AT THE REQUEST OF:Self HAND DOMINANCE: {{Right Left*}} WHAT: {{Right* Left Bi lateral}} {{Knee Ankle Hip Thigh Lower Leg Shoulder* El bow Wrist/Hand}}. WHEN:1.5 week HOW:Fell while hanging a curtain saul with her arm extended over head SYMPTOMS:Patient reports of right posterior and anterior shoulder pain. The pain is worse posteriorly along the medial border of the shoulder blade. Arm movement causes more discomfort. Pain at rest, pain at night. She notes that the shoulder feels unstable. Occasional popping clicking. No numbness or tingling. PAIN: {{0 1 2 3 4 5 6* 7 8 9 10}} /10 PT: No NSAIDS:Yes INJECTION:No REBEKAH TOUSSAINT MD [address] [place], [address], [facility] 12/07/2020 14:54:43 OBGyn Episode No OBEpisode recorded.
--- NOTE | 2024-06-25 14:00 | MM_ITS ---
PROCEDURE INFORMATION: Exam: MG Bilateral Screening 3D Mammography Exam date and time: 06/25/2024 1:43 PM Age: 53 years old Clinical indication: Screening examination. TECHNIQUE: Imaging protocol: Bilateral Screening tomosynthesis and 2D mammography including computer-aided detection (CAD) when performed. COMPARISON: 1. MG MM DIG MAMM BI DX W/CAD 03/27/2023 2:07 PM 2. MG MM CLIP PLACEMENT RT 08/29/2022 11:33 AM FINDINGS: MAMMOGRAPHY: Breast composition: There are scattered areas of fibroglandular density. Mass: None. Architectural distortion: None. Calcifications: No suspicious calcifications. Asymmetric density: None. Skin thickening: None. Axillary adenopathy: None. IMPRESSION: No mammographic evidence of malignancy. Annual screening is recommended unless otherwise clinically indicated. ASSESSMENT: BI-RADS Category 1: Negative.
== END 2024-06-25 23:59 | disposition home or self-care (01) ==
LOC: RAD 13:33
PROVIDERS: PCP Nurse Practitioner Family; Visit Provider Obstetrics & Gynecology
DX: Z12.31 Encounter for screening mammogram for malignant neoplasm of breast (principal)
CPT/HCPCS: 77063; 77067